=== PATIENT | male | born 2000 | race Caucasian/White ===

== ENCOUNTER 2024-12-31 14:39 | Emergency (ER) | payer OTHER, SELFPAY ==
[2024-12-31 14:43] VITALS: BP 153/114; PULSE 83; RESP 16; TEMP 36.6; O2SAT 98
--- NOTE | 2024-12-31 14:53 | ED.GENADUL_ITS ---
Discharge Plan Disposition Patient Disposition: Home Condition: Stable Discharge Details Clinical Impression: Diarrhea Primary Care Provider: Unknown,Unknown ED Provider: Radha Moss Home Meds and New Rx's Prescriptions: No Action No Known Home Meds Discharge Instructions Instructions: Diarrhea, Adult ED Additional Instructions: You were seen in the emergency department today for evaluation after an episode of nausea with vomiting and diarrhea, which has started to improve on its own. In our department you had a full physical examination performed, had reassuring vital signs, and at this time do not require any further studies. However, if your diarrhea persists for greater than a week, is associated with nausea or vomiting that prevents you from eating and drinking, severe abdominal pain, or if it turns bloody you should be reevaluated by your primary care provider and may require stool studies given your exposure to untreated sources of water. It is safe for you to return to work, continue to maintain good hydration and nutrition and you can use [id number] medications as needed for management of pain or fever. Please follow-up with your primary care provider in the next few days to discuss this visit and any symptoms that change, worsen, or persist. Thank you for allowing us to be part of your care. Stand Alone Forms: Work Release HPI General Mode of arrival: ambulatory . Date/Time Provider Initiated Documentation: 12/31/24 14:41 . Limitations to Documentation: no limitations . Information obtained by: patient and old records reviewed . HPI Narrative: HPI: This is a 24-year-old male patient without significant past medical history presenting for evaluation of diarrhea. The patient reports that yesterday he and his family were sick with nausea, vomiting, and nonbloody diarrhea. He states that today his symptoms have resolved, and he feels much improved. However, he missed yesterday and today at work, and needs a work note to return. He reports that he is no longer vomiting, has tolerated oral intake, is not experiencing abdominal pain. He has no recent antibiotic use, has not traveled recently, but does frequently drink water from untreated streams. Exam: Gen: Awake and alert, in no apparent distress HEENT: Non-icteric sclera Neck: Supple Lungs: No apparent respiratory distress, normal respiratory effort. CV: Appears well perfused, strong distal pulses Abdomen: Non-distended, soft, nontender without rigidity, rebound, or guarding MSK: Moves 4 extremities without apparent limitation in ROM Skin: Visualized skin without rashes, cyanosis. Neuro: Normal Gait, no obvious focal deficits or facial asymmetry. Speaks in full, clear sentences. Psych: Appropriate for situation. MDM: This is a 24-year-old male patient presenting for evaluation of nausea vomiting and diarrhea. My differential includes but is not limited to gastroenteritis, I certainly considered etiologies of diarrhea such as Giardia given his exposure to untreated water sources though he reports that his symptoms are greatly improved at this time, and he has not had persistent diarrhea. He is having no difficulty maintaining his hydration and I have a low concern for metabolic or electrolyte derangements, dehydration, or kidney injury. No hospital exposures to increase my concern for C. difficile. ED Course: I do not see an indication for this patient to undergo laboratory studies or advanced imaging. I did recommend that he follow-up with his primary care provider in the next few days for reassessment, and specifically counseled him to inform future healthcare providers of his exposure to unclean water sources if he was to be evaluated for persistent diarrhea. He would certainly require stool ova and parasite testing. At this time, the patient has had a full medical evaluation and is safe for discharge to home. They are hemodynamically stable, ambulatory, and tolerating PO. They are understanding of the follow-up plan and return precautions. They left our facility without incident. Radha Moss MD Related Data Home Medications ?Medication ?Instructions ?Recorded ?Confirmed Unknown [No Known Home Meds] 01/15/18 12/31/24 Allergies Allergy/AdvReac Type Severity Reaction Status Date / Time No Known Allergies Allergy Verified 12/31/24 14:41 General Stated Complaint: Nausea/Vomit/Diar JALEN: 4 Course Vital Signs Vital signs: Vital Signs Temperature 36.6 C 12/31/24 14:43 Pulse 83 12/31/24 14:43 Respiratory Rate 16 12/31/24 14:43 Blood Pressure 153/114 H 12/31/24 14:43 Pulse Oximetry 98 12/31/24 14:43 Temperature 36.6 C 12/31/24 14:43 Temperature Source Oral 12/31/24 14:43 Pulse 83 12/31/24 14:43 Respiratory Rate 16 12/31/24 14:43 Blood Pressure 153/114 H 12/31/24 14:43 Blood Pressure Position Sitting 12/31/24 14:43 Pulse Oximetry 98 12/31/24 14:43 Oxygen Delivery Method Room Air 12/31/24 14:43 Oxygen Flow Rate 0 12/31/24 14:43 Pain Level 0 12/31/24 14:43 Medical Decision Making Quality:SDOH Health Related Social Needs: No Data to Display PFSH All Active Problems (Updated 12/31/24 @ 14:55 by Radha Moss MD) Diarrhea (Acute) [place] elbow syndrome of right upper extremity (Acute 01/25/15) Normal weight, pediatric, BMI 5th to 84th percentile for age (Acute 01/25/15) Routine child health exam (Acute 01/21/14) Surgical History Circumcision Family History Mother Substance abuse Father No problems noted. Brother No problems noted. Other Patient's mother is Social History Smoking/Tobacco Use Status: Current-Occasional Tobacco Type: e-cigarettes Tobacco: How many years used: 3 Smoking risk assessment performed?: Yes Alcohol Intake: current Alcohol Intake frequency: a few times a week Alcohol type: beer Drug use: Occasionally Substance use type: marijuana Do you feel safe in your relationship?: Yes PAWSS Have you Been Recently Intoxicated or Drunk Within the Last 30 days?: Yes Have you Ever Experienced Previous Episodes of Alcohol Withdrawal?: No Have you ever Experienced Withdrawal Seizures?: No Have you ever Experienced Delirium Tremens(DT)s?: No Have you ever undergone Alcohol Rehabilitation Treatment (i.e, inpt ot outpatient treatment programs)?: No Have you ever Experienced Blackouts?: No Have you ever Combined Alcohol with other Downers within the last 90 days?: No Have you ever Combined Alcohol with any other Substance of Abuse during the last 90 days?: No Positive Blood Alcohol level on Presentation? [PCS.BAL]: No Evidence of Increased Autonomic Activity (i.e. HR>120, tremor, sweating, agitation, nausea)?: No Result: 1
[2024-12-31 14:56] VITALS: BP 153/114; PULSE 83; RESP 16; TEMP 36.6; O2SAT 98
== END 2024-12-31 15:00 | disposition home or self-care (01) ==
LOC: ER 15:05
PROVIDERS: Emergency Provider Emergency Medicine
DX: R19.7 Diarrhea, unspecified (principal); R11.2 Nausea with vomiting, unspecified; F17.290 Nicotine dependence, other tobacco product, uncomplicated
CPT/HCPCS: 99282